=== PATIENT | female | born 1985 | race Caucasian/White ===

== ENCOUNTER → 2018-11-07 | Emergency (ER) | payer MEDICAID ==
[~2018-11-07] VITALS: Ht 160 cm; Wt 61.2 kg
[2018-11-07 08:33] VITALS: BP 131/84
--- NOTE | 2018-11-07 09:13 | NUR ---
NO ANSWER IN LOBBY
== END ==
LOC: ED 09:54
DX: L01.01 Non-bullous impetigo (principal); Z90.89 Acquired absence of other organs
CPT/HCPCS: 99283

== ENCOUNTER 2019-06-07 16:33 | Emergency (ER) | payer MEDICAID ==
[~2019-06-07] VITALS: Ht 160 cm; Wt 59.7 kg
--- NOTE | 2019-06-07 17:41 | NUR ---
NOT IN LOBBY X1
--- NOTE | 2019-06-07 19:40 | NUR ---
Patient presents to ER c/o difficulty breathing after sleeping outside. Patient was at her friend's house but was kicked out and slept outside. Patient states she was unable to walk very far without feeling out of breath. She also has right eye redness, swelling, drainage, and pain which started yesterday. Denies trauma. Patient is in NAD. Respirations even and unlabored.
[2019-06-07 20:58] VITALS: BP 92/88
--- NOTE | 2019-06-07 20:59 | NUR ---
Patient discharge instructions given. All questions and concerns addressed. Patient ambulatory with a steady gait. Belongings with patient.
== END 2019-06-07 21:05 | disposition home or self-care (01) ==
LOC: ED 20:59
DX: J06.9 Acute upper respiratory infection, unspecified (principal); H10.021 Other mucopurulent conjunctivitis, right eye; F17.200 Nicotine dependence, unspecified, uncomplicated; Z90.49 Acquired absence of other specified parts of digestive tract
CPT/HCPCS: 71046; 93005; 99283

== ENCOUNTER 2019-12-19 21:22 | Emergency (ER) | payer MEDICAID ==
[~2019-12-19] VITALS: Ht 160 cm; Wt 65.6 kg
[2019-12-19 21:27] VITALS: BP 101/74
== END 2019-12-19 22:21 | disposition home or self-care (01) ==
LOC: ED 22:00
DX: K02.9 Dental caries, unspecified (principal); L03.211 Cellulitis of face; K08.89 Other specified disorders of teeth and supporting structures; F17.210 Nicotine dependence, cigarettes, uncomplicated; Z90.49 Acquired absence of other specified parts of digestive tract
CPT/HCPCS: 99283; 99406

== ENCOUNTER 2020-06-14 09:16 | Emergency (ER) | payer MEDICAID ==
[~2020-06-14] VITALS: Ht 162.6 cm; Wt 70.0 kg
--- NOTE | 2020-06-14 09:32 | NUR ---
MULTIPLE MILK APPLIED TO AFFECTED AREA WITH SOME RELIEF
[2020-06-14] MEDS ORDERED: LORazepam 1MG TABLET ONE (09:35)
[2020-06-14] MEDS ORDERED: LORazepam 1MG TABLET PO ONE (10:00)
--- NOTE | 2020-06-14 10:56 | NUR ---
RECEIVED REPORT FROM ROMAN SONG. ASSUMING CARE AT THIS TIME.
--- NOTE | 2020-06-14 11:01 | NUR ---
PT STATES EYES FEEL BETTER. PT HAS EYES OPEN, NO REDNESS NOTED. CHART UP FOR RECHECK
[2020-06-14 12:37] VITALS: BP 122/85
== END 2020-06-14 12:39 | disposition home or self-care (01) ==
LOC: ED 10:36
DX: L24.5 Irritant contact dermatitis due to other chemical products (principal); F17.200 Nicotine dependence, unspecified, uncomplicated; Z77.098 Contact with and (suspected) exposure to other hazardous, chiefly nonmedicinal, chemicals
CPT/HCPCS: 99283

== ENCOUNTER 2021-01-20 21:21 | Emergency (ER) | payer MEDICAID ==
[~2021-01-20] VITALS: Ht 162.6 cm; Wt 65.8 kg
--- NOTE | 2021-01-20 21:45 | NUR ---
NOT IN LOBBY
[2021-01-20 22:49] LABS: BASOPHILS % (AUTO) 0 % (0-1); EOSINOPHILS % (AUTO) 1 % (1-7); LYMPHOCYTES % (AUTO) 16 % (22-44); MEAN CORPUSCULAR HEMOGLOBIN 30.8 pg (27.0-34.8); MEAN CORPUSCULAR HGB CONC 34.6 g/dL (32.4-35.8); MEAN PLATELET VOLUME 8.3 fL (7.4-10.4); MONOCYTES % (AUTO) 5 % (2-9); NEUTROPHILS % (AUTO) 78 % (42-75); PLATELET COUNT 288 x10^3/uL (130-400); RED BLOOD COUNT 4.59 x10^6/uL (3.82-5.3); RED CELL DISTRIBUTION WIDTH 13.2 % (9.6-15.2)
[2021-01-20 23:00] LABS: ALBUMIN 3.8 g/dL (3.4-5.0); ANION GAP 4 mmol/L (5-15); CALCIUM 8.9 mg/dL (8.5-10.1); CHLORIDE 107 mmol/L (98-107)
[2021-01-20 23:05] LABS: ALANINE AMINOTRANSFERASE 21 U/L (12-78); ALKALINE PHOSPHATASE 63 U/L (45-117); BILIRUBIN,TOTAL 0.4 mg/dL (0.2-1.0); CREATININE 0.67 mg/dL (0.55-1.02); TOTAL PROTEIN 7.9 g/dL (6.4-8.2)
[2021-01-21 00:23] VITALS: BP 131/91
--- NOTE | 2021-01-21 00:23 | NUR ---
Patient given discharge instructions and they have confirmed that they understand the instructions. Patient ambulatory with steady gait. NAD, all questions answered appropriately, denies additional needs at this time. No personal belongings left in room after discharge.
== END 2021-01-21 00:27 | disposition home or self-care (01) ==
LOC: ED 21:30
DX: R11.2 Nausea with vomiting, unspecified (principal); R51.9 Headache, unspecified; R50.9 Fever, unspecified; Z72.9 Problem related to lifestyle, unspecified; Z20.822 Contact with and (suspected) exposure to COVID-19; F17.210 Nicotine dependence, cigarettes, uncomplicated
CPT/HCPCS: 36415; 80053; 84703; 85025; 99283; 99406; U0003; U0005